=== PATIENT | male | born 1955 | race Caucasian/White ===

== ENCOUNTER 2024-07-10 07:03 | Day surgery (SDC) | payer BC, OTHER ==
[2024-07-07 15:34] LABS: Absolute Basophils 0.1 K/uL (0-0.5); Absolute Eosinophils 0.1 K/uL (0-0.5); Absolute Lymphocytes (CBC) 1.1 K/uL (0.7-4.9); Absolute Monocytes 0.5 K/uL (0.1-1.3); Absolute Neutrophil 6.2 K/uL (1.8-8.0); Basophils % 1.1 % (0-1.3); Hematocrit 44.9 % (39.6-49.0); Lymphocytes % 13.8 % (15.3-44.8); MCH 29.7 pg (27.0-35.0); MCHC 35.6 g/dL (32.0-36.0); MCV 83.5 fL (80-100); MPV 8.2 fL (7.6-11.3); Monocytes % 6.8 % (3.3-12.3); Neutrophils % 77.3 % (41.7-73.7); Platelets 212 thou/uL (152-406); RBC Red Blood Cell Count 5.38 M/uL (4.33-5.43)
--- NOTE | 2024-07-07 19:00 | RAD REPORT ---
EXAMINATION: TWO VIEW CHEST XR CLINICAL INDICATION: Male, 69 years old. [facility] Pre-op pending hernia repair. Hypertension TECHNIQUE: 2 view radiographs of the chest were performed. COMPARISON: No prior exam. FINDINGS: The lungs are well inflated. Subtle peripheral right midlung 1.5 cm nodular opacity. No pneumothorax or sizable effusion. The heart is normal in size. Mediastinal contours are unremarkable. IMPRESSION: Subtle peripheral right midlung 1.5 cm nodular opacity, could reflect focus of scarring or a small no dule. Further evaluation by CT may be helpful, and can be performed on nonemergent basis.
[2024-07-10] MEDS: Ringers Lactate 1,000 ML IV ONE (07:40)
[2024-07-10] MEDS ORDERED: LIDOCAINE 1% MPF 5 ML VIAL ONE (08:07)
[2024-07-10] MEDS ORDERED: ONDANSETRON 4 MG/2 ML VIAL ONE (08:07)
[2024-07-10] MEDS ORDERED: ROCURONIUM 50 MG/5 ML VIAL IV ONE (08:07)
[2024-07-10] MEDS ORDERED: KETOROLAC 30 MG/ML INJ ONE (08:07)
[2024-07-10] MEDS ORDERED: MIDAZOLAM HCL 2 MG/2 ML INJ ONE (08:07)
[2024-07-10] MEDS ORDERED: propofoL 200 MG/20 ML VIAL IV ONE (08:07)
[2024-07-10] MEDS ORDERED: FENTANYL CITR 100 MCG/2 ML ONE ×2 (08:07→10:36)
[2024-07-10] MEDS ORDERED: Mastisol Adhesive Liq ONE (08:08)
[2024-07-10] MEDS: CEFAZOLIN SODIUM 1 GM/VIAL ONE (09:00)
[2024-07-10] MEDS ORDERED: GLYCOPYRROLATE 0.2 MG/ML SYR ONE (09:21)
--- NOTE | 2024-07-10 10:51 | P.BOP ---
Preoperative diagnosis: bilateral incarcerated inguinal tender hernias Postoperative diagnosis: same Primary procedure: 1. Open repair of right inguinal hernia with mesh Secondary procedure: 2. Open repair of left inguinal hernia with mesh Other procedure(s): 3. Diagnostic laparoscopy [employer] Superintendent: Sonja Olmos) Estimated blood loss: <10cc Specimen: none Findings: incarcerated bowel L> R Anesthesia: General Complications: None Implants: large plug and sheet mesh right and left Transferred to: Recovery Room Condition: Good
[2024-07-10] MEDS ORDERED: Ringers Lactate 1,000 ML IV ONE (10:55)
[2024-07-10 11:44] VITALS: TEMP 97
[2024-07-10] MEDS: TAMSULOSIN 0.4 MG SR CAP ONE (12:15)
[2024-07-10] MEDS: CODEINE 30MG/APAP 300MG TAB ONE (12:15)
--- NOTE | 2024-07-10 12:16 | EKG ---
Test Date: 2024-07-07 Test Time: 15:01:57 [employer] Operator Helper: JOSE MEASUREMENT RESULTS: Intervals: Rate: 61 CT: 184 QRSD: 114 QT: 450 QTc: 453 Haworth: P: 47 CT: 184 QRS: -39 T: 27 INTERPRETIVE STATEMENTS: Normal sinus rhythm Left axis deviation Voltage criteria for left ventricular hypertrophy Abnormal ECG No previous ECG available for comparison Electronically Signed On 07-10-24 12:09:30 CDT by Jarvis Herrmann
[2024-07-10 12:57] VITALS: BP 132/82; O2SAT 96
--- NOTE | 2024-07-10 21:58 | OP ---
Date of Procedure: 07/10/2024 Surgeon: Preet Ugarte MD Reconciliation Clerk: BACILIO Moreno Preoperative Diagnosis: Bilateral incarcerated inguinal tender hernias. Postoperative Diagnosis: Bilateral incarcerated inguinal tender hernias. Procedures: 1. Open repair of right inguinal hernia with mesh. 2. Open repair of left inguinal hernia with mesh. 3. Diagnostic laparoscopy. Estimated Blood Loss: Less than 10 cc. Specimen: None. Findings: Incarcerated bowel. Hernias, bigger on the left than the right side. The diagnostic lapa roscopy was placed and camera was placed in an attempt to do laparoscopically, but we noted the bowel was not reducible by gentle traction, so we preferred just to do an open technique, so we were able to evaluate the intestines and push it back to the abdomen without any tension. Anesthesia: General plus local. Implant: Large plug and sheet, mesh on the right and left sides. Complications: None. Indication: This is the case of a 69-year-old patient who comes to us with bilateral tender inguinal hernias, the left side more than right. There was intestinal content on it. Benefits, alternatives , and risks of laparoscopic, possible open repair of right and left inguinal hernias with mesh were f ully explained, which include, but not limited to, infection, bleeding, damage to adjacent structures , anesthesia complication, recurrence, MN, and even . He also understands this may not relieve symptoms. He might need more than one surgical intervention. He understood, signed a consent. The patient understands the importance also of no heavy lifting and also importance of losing weight. Procedure In Detail: The patient was brought to the operating room and placed in supine position. A nesthesia was done without complication. Abdominal area was prepped and draped in usual sterile fash ion, including the inguinal region. Time-out was called, local anesthesia was applied, followed by s harp incision of the skin in the infraumbilical region. Incision was carried down until we found the anterior rectus sheath. It was opened on the left side and the muscle retracted laterally to expose the posterior rectus sheath. Under direct visualization, we placed a Spacemaker trocar with balloon after we dissected the preperitoneal space. When we put that trocar, we had the camera on, but when we inflated the balloon and removed the balloon and insufflated the area, we noticed the right side difficult to assess. The patient has open surgery done in that region, so the scar tissue does not a llow you to see the right side and left side. We also noticed that the bowel was not reducible. We were trying to push it from the outside, but since this bowel was not reducible by traction, I am afr aid if I continue this way, then some tear may be in the intestine, so we preferred not to do so and converted that to open surgery. At that moment, I proceeded to remove the trocars under direct visio n, deflated the area, closed the fascia with #1 Vicryl and then proceeded with the open technique. W e did the left side first. It is the biggest of two of them. An incision was made on the inguinal r egion after sponge count and instrument counts were correct. Then, our incision was carried down to Karen fascia until we found external oblique aponeurosis. We opened in the direction of its fibers to connect to the superficial inguinal ring. The ilioinguinal nerve and iliohypogastric nerve were i dentified, protected behind external oblique aponeurosis. Elizabeth was placed around the spermatic co rd. The hernia sac was large and goes into the area of the scrotum, so we reduced that completely op en and we were able at that moment to reduce the intestinal content, that looked viable, but we proce eded then to close the sac and imbricate that area since the floor of the canal needed to be repaired and it was easier that way for the patient. At that moment, once I reduced that, I proceeded then t o put a Prolene #1 in the pubic tubercle and approximated the shelving edges of inguinal ligament to the transversalis fascia. When we have a deep inguinal ring enough just to allow the spermatic cord structures to be passing through, then we put a mesh plug in that region large and secured in place w ith Prolene. After that, I placed a mesh sheet on the floor of the canal securing that to the pubic tubercle once again, shelving edge of the inguinal ligament, and transversalis fascia with use of Pro lance, the tail of this around the spermatic cord without strangulation. Once again, the mesh was sec ured. At that moment, we irrigated the area. No bleeding. I proceeded then to bring the ilioinguin al nerve and iliohypogastric nerve back into the inguinal canal. The spermatic cord structures were protected at all times including the vas deferens. Elizabeth was removed. Then, we proceeded to recon struct the superficial inguinal ring with 2-0 Prolene running this until we closed the external obliq ue aponeurosis, at the same time making sure the nerves were not included. The area was irrigated. The Karen fascia was closed with 3-0 chromic and the skin with derrick. Sponge count and instrument counts were correct. At that moment, we went to the right side. Once again, incision was made on t he skin all the way down to Karen fascia until we found the external oblique aponeurosis, and opened in the direction of its fibers to connect the superficial inguinal ring. The right side is smaller than the left side, still it is going to be the same technique. We saw that this hernia came from th e floor of the canal and once again have to repair. Hernia sac was opened. We reduced the content, reduced, imbricated. Put a mesh plug in that region and secured that in place with 2-0 Prolene. We reconstructed the floor of the canal by using #1 Prolene at the pubic tubercle. Shelving edge of ing uinal ligament and transversalis fascia were tied together in a running fashion to reconstruct the fl oor of the canal. We made sure that we had enough space for the spermatic cord structures to be free d without strangulation. The spermatic cord structures were already around the [place]. After that, then we placed the mesh sheet on the floor of the canal securing that to the pubic tubercle, shelvin g edge of the inguinal ligament, and transversalis fascia with the help of 2-0 Prolene and then after that, the tails were wrapped around the spermatic cord without any strangulation. After that, I pro ceeded then to irrigate the area, and then placed the ilioinguinal nerve and iliohypogastric nerve ba ck into the inguinal canal. Reconstructed superficial inguinal ring and closed the external oblique aponeurosis making sure the nerves were not included. The area was irrigated. Karen fascia was chandana sed with 3-0 chromic and the skin with derrick. Sponge count and instrument counts were correct at the end of the case. Both testicles were within t he scrotum. HM/MODL Voice ID: [id number] Report ID: [id number]
--- NOTE | 2024-07-10 21:58 | DS ---
Date of Discharge: 07/10/2024 Diagnosis: Bilateral inguinal incarcerated tender hernias. Procedure: Open repair of right and left inguinal hernias with mesh, diagnostic laparoscopy. Machine Rebuilder: Sonja Colbert Condition: Stable. Disposition: Home. Activity: As tolerated. No heavy lifting. Discharge Instructions: Follow up in my office in 1 week. Call for appointment [phone]. Keep area dry for 48 hours, then may shower. TAE/JOEL Voice ID: [id number] Report ID: [id number]
== END 2024-07-10 14:00 | disposition home or self-care (01) ==
LOC: OR 07:03
PROVIDERS: ATTEND Surgery
PROC: 0YJA4ZZ Inspection of Bilateral Inguinal Region, Percutaneous Endoscopic Approach (ICD-10-PCS; 2024-07-10)
PROC: 0YUA0JZ Supplement Bilateral Inguinal Region with Synthetic Substitute, Open Approach (ICD-10-PCS; principal; 2024-07-10 08:30)
DX: K40.00 Bilateral inguinal hernia, with obstruction, without gangrene, not specified as recurrent (principal); I10 Essential (primary) hypertension
CPT/HCPCS: 93005; 85025; 80048; 36415; 71046; 49507; J2704; J2003; J2250; J3010 ×2; J2405; J7120 ×2; J0690

== ENCOUNTER 2024-07-15 06:00 | Emergency (ER) | payer BC, OTHER ==
[2024-07-15 06:55] LABS: Absolute Basophils 0.1 K/uL (0-0.5); Absolute Eosinophils 0.2 K/uL (0-0.5); Absolute Lymphocytes (CBC) 0.6 K/uL (0.7-4.9); Absolute Neutrophil 10.7 K/uL (1.8-8.0); Eosinophils % 1.4 % (0-4.4); Hematocrit 41.2 % (39.6-49.0); Hemoglobin 14.4 g/dL (13.6-17.9); Lymphocytes % 4.8 % (15.3-44.8); MCH 29.3 pg (27.0-35.0); MCHC 34.9 g/dL (32.0-36.0); MCV 84.1 fL (80-100); MPV 7.7 fL (7.6-11.3); Neutrophils % 84.8 % (41.7-73.7); Platelets 290 thou/uL (152-406); Red Cell Distribution Width 14.5 % (12.1-15.2); Sqamous Epithelial None Seen /HPF (None Seen); Urine Bacteria None Seen /HPF (<20); Urine Bilirubin NEGATIVE (Negative); Urine Blood Negative (Negative); Urine Clarity Turbid (Clear); Urine Color Light-Yellow (Yellow); Urine Crystals Unidentified Few /HPF (None Seen); Urine Culture Reflex Order NOT NEEDED; Urine Glucose NEGATIVE (Negative); Urine Ketones TRACE (Negative); Urine Microscopic Reflex YN ORDER UMIC; Urine Mucus Slight /HPF (None Seen); Urine Nitrite NEGATIVE (Negative); Urine Protein NEGATIVE (Negative); Urine RBC <5 /HPF (None Seen); Urine Urobilinogen Normal (Normal); Urine WBC <5 /HPF (<5); Urine Yeast (Budding) Trace /HPF (None Seen)
[2024-07-15 07:09] LABS: Albumin 2.8 g/dL (3.4-5.0); Albumin/Globulin Ratio 0.7 (1.1-1.8); Anion Gap 12.3 mEq/L (5.0-15.0); Bilirubin Total 1.3 mg/dL (0.2-1.0); Globulin 4.3 g/dL (2.3-3.5); Potassium 3.3 mEq/L (3.5-5.1); Protein, Total 7.1 g/dL (6.4-8.2)
[2024-07-15] MEDS ORDERED: BISACODYL 10 MG RECTAL SUPP ONE (07:28)
[2024-07-15] MEDS ORDERED: LACTULOSE 20 GM/30 ML UCUP ONE (07:29)
--- NOTE | 2024-07-15 09:19 | RAD REPORT ---
EXAMINATION: CT Abdomen Pelvis W Contrast CLINICAL INDICATION: Male, 69 years old. Abd pain;Constipation TECHNIQUE: CT abdomen and pelvis was performed, after the administration of IV contrast, [facility]. Axial, sagittal and coronal reconstructions were obtained. One or more of the following dose reduction techniques were used: Automated exposure control, adjustment of the mA and k V according to patient size, and iterative reconstruction. Unless otherwise specified, incidental findings do not require dedicated imaging follow-up. COMPARISON: No prior exam. FINDINGS: LOWER CHEST: The visualized lung bases are clear. LIVER: Normal in size and contour. Multiple hypoattenuating fluid density lesions, many are less than 1 cm in size, therefore difficult to characterize. The most sizable lesion is subcapsular along the anterior margin of segment 4A, also demonstrating fluid density, measuring 7.2 x 6.4 cm, with guerrero ear marginal calcification, suggesting a benign cyst. No other focal lesion. BILIARY SYSTEM: Status post cholecystectomy. SPLEEN: Normal size. No focal lesion. PANCREAS: No mass, ductal dilation, or ivett-pancreatic fluid. ADRENALS: Normal; no mass. KIDNEYS: Normal size and contour. No hydronephrosis. URINARY BLADDER: Decompressed with Beckford catheter in place. GASTROINTESTINAL TRACT: No evidence of significant intra-abdominal free fluid, bowel obstruction or a bscess. Mild to moderate stool burden along the sigmoid colon and rectum APPENDIX: Appendix not visualized, but no inflammatory changes in region of appendix. LYMPH NODES: No lymphadenopathy. MUSCULOSKELETAL: No acute or suspicious osseous abnormality. ADDITIONAL FINDINGS: Postsurgical changes of bilateral inguinal hernia repair. Thickening/distention along the left inguinal canal with heterogeneous hyperdense material, measuring up to 3.1 cm in thickness along its mid aspect, suggesting a localized hemorrhage. Poorly localized fluid near the in guinal rings bilaterally, with collections measuring 3.1 x 2.5 cm on the left (containing some locules of gas), and 3.3 x 1.8 cm on the right. Mild left hydrocele is noted. IMPRESSION: Postsurgical changes of bilateral inguinal hernia repair, with poorly localized hemorrhage along the left inguinal canal, and poorly localized small seromas near the inguinal rings bilaterally. Mild left hydrocele is also noted. No evidence of bowel obstruction. Mild to moderate stool burden along the sigmoid colon and rectum. Other incidental findings including benign-appearing liver cysts. THIS REPORT CONTAINS FINDINGS THAT MAY BE CRITICAL TO PATIENT CARE. The findings were verbally commun icated via telephone to To Barrientos MD on 07/15/2024 9:06 AM. He is slightly more prominent as
--- NOTE | 2024-07-15 09:36 | ER ---
Nurse's Notes [facility] Name: Syed Aceves Age: 69 yrs Sex: Male : 1955 Arrival Date: 07/15/2024 Time: 06:00 Bed 5 Private MD: Diagnosis: Other retention of urine;Retention of urine, unspecified-1800 cc;Constipation Presentation: 07/15 06:14 Chief complaint: Patient states: UNABLE TO URINATE FOR THE LAST 12-14 HRS. PT IS S/P br2 DOUBLE HERNIA ON WEDNESDAY. HASN'T HAD A BM SINCE WEDNESDAY. PT IS TAKING TYLENOL #3 AND STOOL SOFTENER AND IS NOW HAVING STOOL LEAKAGE. C/O LOWER AB PAIN. Coronavirus screen: Client denies travel out of the [place] in the last 14 days. Ebola Screen: Patient denies exposure to infectious person. Initial Sepsis Screen: Does the patient meet any 2 criteria? No. Patient's initial sepsis screen is negative. Does the patient have a suspected source of infection? No. Patient's initial sepsis screen is negative. Risk Assessment: Do you want to hurt yourself or someone else? Patient reports no desire to harm self or others. Onset of symptoms is unknown. 06:14 Method Of Arrival: Wheelchair br2 06:14 Acuity: FLORINA 3 br2 Triage Assessment: 06:17 General: Appears uncomfortable, Behavior is calm, cooperative. Pain: Complains of pain br2 in suprapubic area Pain currently is 10 out of 10 on a pain scale. : Reports inability to void, since 12-14 HRS pain. Historical: - Allergies: 06:17 No Known Allergies; br2 - PMHx: 06:17 Hypertensive disorder; br2 - Immunization history:: Adult Immunizations up to date. - Infectious Disease History:: Denies. - Social history:: Smoking status: . Screenin:05 [facility] ED Fall Risk Assessment (Adult) History of falling in the last 3 months, ha1 including since admission No falls in past 3 months (0 pts) Confusion or Disorientation No (0 pts) Intoxicated or Sedated No (0 pts) Impaired Gait Yes (1 pt) Mobility Assist Device Used Yes (1 pt) Altered Elimination No (0 pt) Score/Fall Risk Level 0 - 2 = Low Risk Oriented to surroundings, Maintained a safe environment, Educated pt \T\ family on fall prevention, incl call for assistance when getting out of bed, Hourly rounding (assess needs \T\ fall precautionary measures) done. Abuse screen: Denies threats or abuse. Denies injuries from another. Nutritional screening: No deficits noted. Tuberculosis screening: No symptoms or risk factors identified. Assessment: 06:10 General: Appears uncomfortable, Behavior is cooperative. Pain: Complains of pain in ha1 pelvis Pain currently is 10 out of 10 on a pain scale. Quality of pain is described as pressure, throbbing, Pain began gradually. Neuro: Level of Consciousness is awake, alert, obeys commands, Oriented to person, place, time, situation. Cardiovascular: Capillary refill < 3 seconds Patient's skin is warm and dry. Respiratory: Airway is patent Respiratory effort is even, unlabored, Respiratory pattern is regular, symmetrical. GI: Abdomen is round non-distended, Bowel sounds present X 4 quads. Abd is soft X 4 quads Abdomen is tender to palpation in right lower quadrant and left lower quadrant. GI: KAVITA AT THE INGUINAL AREA BILATERAL. : Swelling noted on scrotum Last void Reports inability to void, since 12 hours ago. Derm: Skin is pink, warm \T\ dry. 07:00 Reassessment: RECD REPORT FROM PAO COLBY. 69YO WM P/W ABD PAIN AND CONSTIPATION bp AFTER RECENT HERNIA SURGERY. NOONAN IN PLACE FOR URINARY RETENTION. 07:30 Reassessment: CT NOTIFIED, PO CONTRAST COMPLETED. bp 09:33 Reassessment: Patient appears in no apparent distress at this time. Patient is alert, bp oriented x 3, equal unlabored respirations, skin warm/dry/pink. Vital Signs: 06:14 BP 170 / 84; Pulse 73; Resp 18; Temp 97.8; Pulse Ox 98% ; Weight 81.65 kg; Height 5 ft. br2 11 in. ; Pain 10/10; 07:15 BP 158 / 77; Pulse 72; Resp 15; Pulse Ox 97% ; bp 09:30 BP 130 / 63; Pulse 78; Resp 16; Pulse Ox 97% ; bp 11:06 BP 147 / 83; Pulse 85; Resp 16; Pulse Ox 96% ; bp 06:14 Body Mass Index 25.10 (81.65 kg, 180.34 cm) br2 06:14 Pain Scale: Adult br2 ED Course: 06:03 Patient arrived in ED. [id number] 06:05 Patient has correct armband on for positive identification. Placed in gown. Bed in low ha1 position. Call light in reach. Side rails up X2. Adult w/ patient. 06:12 Almaz Ritter, RN is Primary Nurse. ha1 06:15 Provided Education on: NOONAN INSERTION, AND PLAN OF CARE . ha1 06:15 Noonan cath inserted, using sterile technique, 16 Fr., balloon inflated, to gravity ha1 drainage, urine specimen collected. returned clear yellow urine. Patient tolerated well. 18OO ML OUTPUT. 06:17 Triage completed. br2 06:17 Arm band placed on right wrist. br2 06:28 Maribel Morales MD is Attending Physician. sp3 06:30 Inserted saline lock: 20 gauge in left antecubital area, using aseptic technique. Blood ha1 collected. Flushed with 10 mL NS. 06:45 Lactate w/ 2H reflex if indic. Sent. ha1 06:46 UA Rfx Aidan Cult if indicated Sent. ha1 06:46 CBC with Diff Sent. ha1 06:46 CMP Sent. ha1 06:46 Lipase Sent. ha1 07:38 Primary Nurse role handed off by Almaz Ritter RN bp 07:38 Emmett Abraham, RN is Primary Nurse. bp 08:16 CT Abd/Pelvis - PO and IV Contrast In Process Unspecified. EDMS 09:36 Preet Ugarte MD is Referral Physician. kirill 11:07 No provider procedures requiring assistance completed. IV discontinued, intact, bp bleeding controlled, No redness/swelling at site. Pressure dressing applied. Administered Medications: 07:15 Drug: Dulcolax IN Suppository 10 mg IN once Route: IN; bp 11:07 Follow up: Response: No adverse reaction bp 07:15 Drug: Lactulose PO 30 grams 45 ml PO once Volume: 45 ml; Route: PO; bp 11:07 Follow up: Response: No adverse reaction bp Medication: 06:56 VIS not applicable for this client. ha1 Output: 06:46 Urine: 1800ml (Noonan); Total: 1800ml. ha1 Outcome: 09:36 Discharge ordered by . kirill 11:07 Discharged to home via wheelchair, with family, bp 11:07 Condition: stable 11:07 Discharge instructions given to patient, family, Instructed on discharge instructions, follow up and referral plans. medication usage, Demonstrated understanding of instructions, follow-up care, medications, Prescriptions given X 4, 11:08 Patient left the ED. bp Signatures: Dispatcher [employer] EDLA To Barrientos MD MD cha Peltier, Brian RN RN bp Maribel Morales MD MD sp3 Randa Mendez6 Almaz Ritter RN RN ha1 Yoselin Forman RN RN br2
--- NOTE | 2024-07-15 09:36 | EDPHYS ---
Physician Documentation [facility] Name: Syed Aceves Age: 69 yrs Sex: Male : 1955 Arrival Date: 07/15/2024 Time: 06:00 Bed 5 Private MD: ED Physician Maribel Morales HPI: 07/15 06:48 This 69 yrs old Male presents to ER via Wheelchair with complaints of Urinary sp3 Retention, Constipation, Post Surgical Pain. 06:48 69-year-old male with history of hypertension and recent bilateral inguinal hernia sp3 repair by Dr. Ugarte 5 days ago now presents with constipation and urinary retention. Patient has not had a bowel movement since the surgery and has not had urine output in the last 12 hours. Patient has the urge to urinate however is unable to. He denies any upper abdominal pain, back pain, flank pain, fever, vomiting, or any other signs or symptoms on ROS at this time.. Historical: - Allergies: 06:17 No Known Allergies; br2 - PMHx: 06:17 Hypertensive disorder; br2 - Immunization history:: Adult Immunizations up to date. - Infectious Disease History:: Denies. - Social history:: Smoking status: . ROS: 06:49 Constitutional: Negative for fever, chills, and weight loss, Eyes: Negative for injury, sp3 pain, redness, and discharge, ENT: Negative for injury, pain, and discharge, Neck: Negative for injury, pain, and swelling, Cardiovascular: Negative for chest pain, palpitations, and edema, Respiratory: Negative for shortness of breath, cough, wheezing, and pleuritic chest pain, Back: Negative for injury and pain, MS/Extremity: Negative for injury and deformity, Skin: Negative for injury, rash, and discoloration, Neuro: Negative for headache, weakness, numbness, tingling, and seizure, Psych: Negative for depression, anxiety, suicide ideation, homicidal ideation, and hallucinations, Allergy/Immunology: Negative for hives, rash, and allergies, Endocrine: Negative for neck swelling, polydipsia, polyuria, polyphagia, and marked weight changes, Hematologic/Lymphatic: Negative for swollen nodes, abnormal bleeding, and unusual bruising, 06:49 All other systems are negative, Exam: 06:49 Constitutional: This is a well developed, well nourished patient who is awake, alert, sp3 and in no acute distress. Head/Face: Normocephalic, atraumatic. Eyes: Pupils equal round and reactive to light, extra-ocular motions intact. Lids and lashes normal. Conjunctiva and sclera are non-icteric and not injected. Cornea within normal limits. Periorbital areas with no swelling, redness, or edema. ENT: Nares patent. No nasal discharge, no septal abnormalities noted. External auditory canals are clear. Oropharynx with no redness, swelling, or masses, exudates, or evidence of obstruction, uvula midline. Mucous membranes moist. Neck: Trachea midline, no thyromegaly or masses palpated, and no cervical lymphadenopathy. Supple, full range of motion without nuchal rigidity, or vertebral point tenderness. No Meningismus. Chest/axilla: Normal chest wall appearance and motion. Nontender with no deformity. No lesions are appreciated. Cardiovascular: Regular rate and rhythm with a normal S1 and S2. No gallops, murmurs, or rubs. Normal PMI, no JVD. No pulse deficits. Respiratory: Lungs have equal breath sounds bilaterally, clear to auscultation and percussion. No rales, rhonchi or wheezes noted. No increased work of breathing, no retractions or nasal flaring. Back: No spinal tenderness. No costovertebral tenderness. Full range of motion. Male : Normal genitalia with no discharge or lesions. Skin: Warm, dry with normal turgor. Normal color with no rashes, no lesions, and no evidence of cellulitis. MS/ Extremity: Pulses equal, no cyanosis. Neurovascular intact. Full, normal range of motion. Neuro: Awake and alert, GCS 15, oriented to person, place, time, and situation. Cranial nerves II-XII grossly intact. Motor strength 5/5 in all extremities. Sensory grossly intact. Cerebellar exam normal. Normal gait. Psych: Awake, alert, with orientation to person, place and time. Behavior, mood, and affect are within normal limits. 06:49 Abdomen/GI: Distended bladder noted. Surgical sites without erythema or other signs of infection. No peritoneal signs, rebound or guarding. Post Beckford insertion exam demonstrates resolved bladder distention and patient's pain is improved. 1800 mL initially released after Beckford insertion. Abdomen still soft., Vital Signs: 06:14 BP 170 / 84; Pulse 73; Resp 18; Temp 97.8; Pulse Ox 98% ; Weight 81.65 kg; Height 5 ft. br2 11 in. ; Pain 10/10; 07:15 BP 158 / 77; Pulse 72; Resp 15; Pulse Ox 97% ; bp 09:30 BP 130 / 63; Pulse 78; Resp 16; Pulse Ox 97% ; bp 11:06 BP 147 / 83; Pulse 85; Resp 16; Pulse Ox 96% ; bp 06:14 Body Mass Index 25.10 (81.65 kg, 180.34 cm) br2 06:14 Pain Scale: Adult br2 MDM: 06:35 Medical Screening Exam initiated sp3 06:50 Data reviewed: vital signs, nurses notes, lab test result(s), radiologic studies. ED sp3 course: 69-year-old male postop day 5 from inguinal hernia repair by Dr. Ugarte. Patient presents with constipation and urinary retention which has been resolved with a Beckford catheter. I do not believe there is an ongoing infection or surgical abdomen. Will obtain general labs and CT scan of the abdomen pelvis patient was signed out to daytime physician for follow-up and discussion with Dr. Ugarte.. 07/15 06:30 Order name: CBC with Diff; Complete Time: 07:50 ha1 07/15 06:30 Order name: CMP; Complete Time: 07:50 ha1 07/15 06:30 Order name: Lipase; Complete Time: 07:50 ha1 07/15 06:30 Order name: UA Rfx Aidan Cult if indicated; Complete Time: 07:50 ha1 07/15 06:35 Order name: Lactate w/ 2H reflex if indic.; Complete Time: 07:50 sp3 07/15 07:08 Order name: CT Abd/Pelvis - PO and IV Contrast; Complete Time: 09:35 kirill 07/15 06:30 Order name: IV Saline Lock; Complete Time: 06:46 ha1 07/15 06:30 Order name: Labs collected and sent; Complete Time: 06:46 ha1 07/15 06:35 Order name: Beckford; Complete Time: 06:45 sp3 07/15 06:35 Order name: NPO; Complete Time: 06:45 sp3 Administered Medications: 07:15 Drug: Dulcolax VA Suppository 10 mg VA once Route: VA; bp 11:07 Follow up: Response: No adverse reaction bp 07:15 Drug: Lactulose PO 30 grams 45 ml PO once Volume: 45 ml; Route: PO; bp 11:07 Follow up: Response: No adverse reaction bp Disposition Summary: 07/15/24 09:36 Discharge Ordered Notes: Location: Home kirill Problem: new kirill Symptoms: have improved kirill Condition: Stable kirill Diagnosis - Other retention of urine kirill - Retention of urine, unspecified - 1800 cc kirill - Constipation kirill Followup: kirill - With: Private Physician - When: 2 - 3 days - Reason: Recheck today's complaints, Continuance of care, Re-evaluation by your physician Followup: kirill - With: Preet Ugarte MD - When: 2 - 3 days - Reason: Recheck today's complaints, Re-evaluation by your physician Discharge Instructions: - Discharge Summary Sheet kirill - Constipation, Adult kirill - Acute Urinary Retention, Male kirill - Constipation, Adult, [id number] kirill - Acute Urinary Retention, Male, [id number] kirill - Indwelling Urinary Catheter Care, Adult, [id number] [facility] Forms: - Medication Reconciliation Form [facility] - Antibiotic Education kirill - Prescription Opioid Use [facility] - Patient Portal Instructions [facility] - Leadership Thank You Letter [facility] Prescriptions: - Dulcolax (bisacodyl) 10 mg Rectal suppository - insert 1 suppository RECTAL route daily for 12 hours; 10 suppository; Refills: kirill 0, Product Selection Permitted - Flomax 0.4 mg Oral capsule - take 1 capsule ORAL route daily; 30 capsule; Refills: 0, Product Selection kirill Permitted - Lactulose 10 gram/15 mL Oral Solution - take 30 milliliters ORAL route once daily; 300 milliliter; Refills: 0, Product [facility] Selection Permitted - Cipro 500 mg Oral tablet - take 1 tablet ORAL route every 12 hours for 5 days; 10 tablet; Refills: 0, [facility] Product Selection Permitted Signatures: Dispatcher [employer] EDMS To Barrientos MD MD cha Peltier, Brian, RN RN Maribel Chauhan MD MD sp3 Almaz Ritter, RN RN ha1 Yoselin Forman RN RN br2 Corrections: (The following items were deleted from the chart) 07:12 06:35 Abdomen Pelvis W Con+CT.RAD.BRZ ordered. EDMS EDMS
[2024-07-15 11:25] VITALS: TEMP 97.8
[2024-07-15 11:29] VITALS: BP 147/83; O2SAT 96
== END 2024-07-15 11:08 | disposition home or self-care (01) ==
LOC: ER 06:00
DX: R33.8 Other retention of urine (principal); K59.00 Constipation, unspecified; Z98.890 Other specified postprocedural states; I10 Essential (primary) hypertension
CPT/HCPCS: 85025; 81001; 36415; 83605; 83690; 80053; 74177; 51702; 99284; Q9967